=== PATIENT | male | born 1980 | race Two or more races ===

== ENCOUNTER 2025-02-06 15:36 | Emergency (ER) | payer SELFPAY ==
[~2025-02-06] VITALS: Ht 165.1 cm; Wt 54.9 kg
[2025-02-06 17:41] LABS: KETONE, URINE AUTO RFX NEGATIVE (NEGATIVE); MUCUS, URINE RFX SMALL (NEGATIVE); NITRITE, URINE AUTO RFX NEGATIVE (NEGATIVE); RBC, URINE AUTO RFX 2 /HPF (0-3); SQUAM EPITHELIAL CELL UR AURFX 1 /HPF (0-6)
[2025-02-06 17:42] LABS: LEUKOCYTE ESTERASE UR AUTO RFX 1+ (NEGATIVE); WBC, URINE AUTO RFX 46 /HPF (0-3)
[2025-02-06 18:40] LABS: Trichomonas vaginalis (AMP) NOT DETECTED (NEGATIVE)
[2025-02-06] MEDS ORDERED: ACETAMINOPHEN 325 MG TAB PO ONE (18:45)
[2025-02-06 19:04] LABS: GC DNA AMPLIFICATION NEGATIVE (NEGATIVE)
[2025-02-06] MEDS ORDERED: ISOVUE-370 76% 100 ML VIAL As Ordered ONE (19:22)
[2025-02-06] MEDS: KETOROLAC 30 MG/ML 1 ML VIAL IV ONE (19:25)
[2025-02-06 19:37] LABS: BASO # 0.1 10^3/uL (0.0-0.2); BASO % 1.1 % (0.0-1.0); EOS # 0.8 10^3/uL (0.0-0.5); EOS % 12.1 % (0.0-3.0); LYMPH # 3.0 10^3/uL (1.5-5.0); LYMPH % 45.4 % (24.0-44.0); MONO # 0.5 10^3/uL (0.0-0.8); MONO % 7.3 % (2.0-8.0); NEUTROPHILS # 2.2 10^3/uL (1.5-8.5); NEUTROPHILS % 33.8 % (36.0-66.0); PLATELET COUNT, AUTOMATED 350 10^3/uL (150-450)
[2025-02-06] MEDS: ACETAMINOPHEN *IV* 1,000 MG in IV 1 EA IV ONE (19:47)
[2025-02-06] MEDS: NS (Normal Saline) 0.9% 1,000 ML IV ONE (19:47)
[2025-02-06 19:54] LABS: ALT/SGPT 13 U/L (7.0-40); AST/SGOT 22 U/L (<34); CALCIUM LEVEL 9.5 MG/DL (8.5-10.1); CARBON DIOXIDE LEVEL 27 MMOL/L (20-31); CHLORIDE LEVEL 107 MMOL/L (98-107); CREATININE FOR GFR 0.83 MG/DL (0.70-1.30); GLOMERULAR FILTRATION RATE > 90.0 (>60); POTASSIUM SERUM 4.2 MMOL/L (3.5-5.1); SODIUM LEVEL 142 MMOL/L (136-145)
[2025-02-06 22:32] VITALS: TEMP 96.8
[2025-02-06 22:41] VITALS: BP 107/67; O2SAT 100
== END 2025-02-06 23:18 | disposition home or self-care (01) ==
LOC: M ED 15:36
DX: N20.0 Calculus of kidney (principal); R10.9 Unspecified abdominal pain; J98.11 Atelectasis; R00.1 Bradycardia, unspecified; F17.210 Nicotine dependence, cigarettes, uncomplicated
CPT/HCPCS: 71046; 74177; 80047; 80048; 80076; 81001; 83605; 83690; 85025; 87086; 87661; 87810; 87850; 93005; 93041; 96374; 96375; 99285; J0134; J1885; Q9967

== ENCOUNTER 2025-02-08 23:28 | Inpatient (IN) | payer SELFPAY ==
[~2025-02-08] VITALS: Ht 167.6 cm; Wt 56.5 kg
[2025-02-09] VITALS (7 sets, daily range): BP systolic 102–134; BP diastolic 58–79; TEMP 97.1–99.5; O2SAT 98–100
[2025-02-09 00:18] LABS: BASO # 0.1 10^3/uL (0.0-0.2); BASO % 0.7 % (0.0-1.0); EOS # 0.7 10^3/uL (0.0-0.5); EOS % 7.2 % (0.0-3.0); LYMPH # 2.7 10^3/uL (1.5-5.0); LYMPH % 27.7 % (24.0-44.0); MONO # 0.8 10^3/uL (0.0-0.8); MONO % 8.5 % (2.0-8.0); NEUTROPHILS # 5.3 10^3/uL (1.5-8.5); NEUTROPHILS % 55.4 % (36.0-66.0); PLATELET COUNT, AUTOMATED 333 10^3/uL (150-450)
[2025-02-09 00:35] LABS: ALT/SGPT 14 U/L (7.0-40); AST/SGOT 21 U/L (<34); CALCIUM LEVEL 8.6 MG/DL (8.5-10.1); CARBON DIOXIDE LEVEL 22 MMOL/L (20-31); CHLORIDE LEVEL 108 MMOL/L (98-107); CREATININE FOR GFR 0.76 MG/DL (0.70-1.30); GLOMERULAR FILTRATION RATE > 90.0 (>60); POTASSIUM SERUM 4.2 MMOL/L (3.5-5.1); SODIUM LEVEL 140 MMOL/L (136-145)
[2025-02-09] MEDS: KETOROLAC 30 MG/ML 1 ML VIAL IV ONE (00:58)
[2025-02-09 01:13] LABS: KETONE, URINE AUTO RFX NEGATIVE (NEGATIVE); LEUKOCYTE ESTERASE UR AUTO RFX NEGATIVE (NEGATIVE); MUCUS, URINE RFX SMALL (NEGATIVE); NITRITE, URINE AUTO RFX NEGATIVE (NEGATIVE); RBC, URINE AUTO RFX 1 /HPF (0-3); SQUAM EPITHELIAL CELL UR AURFX 0 /HPF (0-6); WBC, URINE AUTO RFX 5 /HPF (0-3)
[2025-02-09] MEDS ORDERED: ACETAMINOPHEN 325 MG TAB PO PRN (04:50)
[2025-02-09] MEDS ORDERED: MAALOX 30 ML SUSP *UDC PO PRN (04:50)
[2025-02-09] MEDS ORDERED: ONDANSETRON 4MG/2ML VIAL IV PRN ×2 (04:50→09:20)
[2025-02-09] MEDS ORDERED: MOM 30 ML SUSPENSION UDC PO PRN (04:50)
[2025-02-09] MEDS: ACETAMINOPHEN *IV* 1,000 MG in IV 1 EA IV ONE (05:50)
[2025-02-09] MEDS: NS (Normal Saline) 0.9% 1,000 ML IV SCH (05:51)
[2025-02-09] MEDS: MORPHINE 2 MG/ML 1 ML VIAL IV ONE (05:51)
[2025-02-09 07:20] LABS: PLATELET COUNT, AUTOMATED 264 10^3/uL (150-450)
[2025-02-09] MEDS: cefTRIAXone SOD 1 GM in DEXTROSE 5% (D5W) ADV/MINI-BAG 50 ML IV SCH (07:49)
[2025-02-09 07:57] LABS: ALT/SGPT 10 U/L (7.0-40); AST/SGOT 15 U/L (<34); CALCIUM LEVEL 7.4 MG/DL (8.5-10.1); CARBON DIOXIDE LEVEL 21 MMOL/L (20-31); CHLORIDE LEVEL 112 MMOL/L (98-107); CREATININE FOR GFR 0.75 MG/DL (0.70-1.30); GLOMERULAR FILTRATION RATE > 90.0 (>60); POTASSIUM SERUM 3.8 MMOL/L (3.5-5.1); SODIUM LEVEL 142 MMOL/L (136-145)
[2025-02-09] MEDS ORDERED: MIDAZOLAM INJ 2 MG/2 ML VIAL As Ordered ONE (07:57)
[2025-02-09] MEDS ORDERED: LIDOCAINE 2% 100 MG/5 ML SDV (FOR ANES.) As Ordered ONE (07:57)
[2025-02-09] MEDS ORDERED: ACETAMINOPHEN 1000MG/100ML IV BAG As Ordered ONE (07:58)
[2025-02-09] MEDS ORDERED: dexAMETHasone 4 MG/ML 1 ML VIAL As Ordered ONE (07:58)
[2025-02-09] MEDS ORDERED: ONDANSETRON 4MG/2ML VIAL As Ordered ONE (07:58)
[2025-02-09] MEDS ORDERED: dexmedeTOMIDine (4 MCG/ML) 200 MCG/50 ML BTL As Ordered ONE (07:59)
[2025-02-09] MEDS: ISOVUE-300 61% 100 ML VIAL As Ordered ONE (09:05)
[2025-02-09] MEDS ORDERED: MORPHINE 2 MG/ML 1 ML VIAL IV PRN (09:20)
[2025-02-09] MEDS: HYDROMORPHONE HCL 0.5 MG/0.5 ML SYRINGE IV PRN (09:52)
[2025-02-09] MEDS: PANTOPRAZOLE 40MG VIAL IV SCH (10:29)
[2025-02-09] MEDS: HEPARIN SOD 5000 UNITS/ML 1 ML VIAL/SYRINGE SC SCH (10:30)
[2025-02-09] MEDS: MORPHINE 2 MG/ML 1 ML VIAL IV PRN (10:31)
[2025-02-09] MEDS: DOCUSATE SODIUM 100 MG CAPSULE PO SCH (10:41)
[2025-02-09] MEDS: PHENAZOPYRIDINE 100 MG TAB PO SCH (10:41)
[2025-02-09] MEDS ORDERED: CEFD1CAP9 PO (12:28)
[2025-02-09] MEDS ORDERED: OXYB5TAB14 PO (12:28)
[2025-02-09] MEDS ORDERED: PHEN1TAB73 PO (12:28)
[2025-02-21] MEDS ORDERED: OXYB5TAB14 PO (05:58)
[2025-02-21] MEDS ORDERED: PHEN1TAB73 PO (05:58)
[2025-02-23] MEDS ORDERED: SULF-8 PO (11:29)
== END 2025-02-09 16:45 | disposition home or self-care (01) | DRG 465 ==
LOC: M ED 23:28 → M ED INP 02-09 04:46 → M MS4PR 02-09 10:00
PROVIDERS: ADMIT Student in an Organized Health Care Education/Training Program; ATTEND Internal Medicine
PROC: 0T768DZ Dilation of Right Ureter with Intraluminal Device, Via Natural or Artificial Opening Endoscopic (ICD-10-PCS; principal; 2025-02-09 07:00)
DX: N13.1 Hydronephrosis with ureteral stricture, not elsewhere classified (principal); F17.200 Nicotine dependence, unspecified, uncomplicated; Z79.899 Other long term (current) drug therapy